=== PATIENT | female | born 1990 | race Caucasian/White ===

== ENCOUNTER 2020-11-07 20:15 | Emergency (ER) | payer MEDICAID, SELFPAY ==
[2020-11-07 20:16] VITALS: TEMP 37.2; BMI 19.0
[2020-11-07 20:18] VITALS: TEMP 37.3
[2020-11-07 20:21] VITALS: BP 104/48; PULSE 135; RESP 18; O2SAT 97
[2020-11-07] MEDS: Acetaminophen 325 MG Tablet 650 MG PO (21:37)
[2020-11-07] MEDS: 0.9% Normal Saline 1,000 ML 1000 ML IV (21:38)
--- NOTE | 2020-11-07 21:38 | EDS_ITS ---
HPI History of Present Illness Chief Complaint: Nausea/Vomiting/Diarrhea Informant: patient and parent Narrative Narrative: Patient is a 30-year-old previously healthy female who presents to the emergency department for nausea/vomiting, diarrhea and belly pain. Her symptoms were present for 2 hours prior to arrival in the ED. The mother who is at bedside states she could not get her up so she decided to call the ambulance. Patient is feeling much better at this time. She is only complaining of a mild headache. She is no longer nauseous. She denies any known sick contacts. They thought that she had a low-grade fever at home. They attempted to give her a dose of Tylenol but she threw this up. She is currently 10 weeks . This is her second . Previous was healthy without acute issue. She denies any vaginal bleeding or discharge. No urinary symptoms. Denies any chest pain, shortness of breath or cough. [facility] Medical History (Updated 11/07/20 @ 23:[address] Servando Lopez DO) Anxiety Depression Ectopic Schizo affective schizophrenia Home Medications NK 11/07/20 [History Last Taken Unknown] Allergy/AdvReac Type Severity Reaction Status Date / Time No Known Allergies Allergy Verified 11/07/20 20:16 Social History Smoking Status: Current every day smoker tobacco type: cigarettes ROS ROS ED Constitutional Constitutional ED: Reports fever(s); Denies chills Eyes Eyes: Denies change in vision ENT ENT ED: Denies epistaxis or rhinorrhea Cardiovascular Cardiovascular: Denies chest pain or palpitations Respiratory/Chest Respiratory/Chest: Denies cough, dyspnea or dyspnea on exertion Gastrointestinal Gastrointestinal: Reports abdominal pain, diarrhea, nausea and vomiting Genitourinary Genitourinary ED: Denies dysuria, hematuria or urinary frequency Musculoskeletal Musculoskeletal: Denies back pain or neck pain Integumentary Denies rash Neurologic Neurologic: Denies dizziness, headache(s) or weakness EXAM Physical Exam Const Vital Signs: 11/07/20 20:16 11/07/20 20:18 11/07/20 20:21 Temperature 99 F 99.2 F H Temperature Source Temporal Temporal Pulse Rate 135 H Respiratory Rate 18 Blood Pressure 104/48 L Blood Pressure Mean 66 Pulse Ox 97 Oxygen Delivery Method Room Air Positive well nourished and well developed General Appearance ED: well developed and NAD HEENT Reports normocephalic, head/scalp atraumatic and moist mucous membranes Eyes PERRL and EOMs intact bilaterally Neck supple Chest Wall inspection of chest normal Resp normal respiratory effort and clear to auscultation bilaterally Auscultation: Negative for rales, rhonchi or wheezes Cardio regular rate, regular rhythm and no murmurs GI normal to inspection, nondistended, normoactive bowel sounds and non-tender Palpation: soft; Negative for guarding or rebound tenderness present Back/Spine no CVA tenderness Extremity normal to inspection General Extremety ED: Negative for edema or tenderness General Extremity: Negative for edema Neuro oriented x3, CN's II-XII intact bilaterally and no sensory deficits noted Sensorium / Orientation: alert Motor Exam: strength 5/5 throughout Psych mental status grossly normal Skin no rashes or lesions noted MDM MDM MDM Narrative Medical decision making narrative: Patient presents to the emerge department for 2 hours worth of nausea/vomiting, diarrhea and abdominal pain. She is feeling better on arrival. She does have a mildly low blood pressure and is tachycardic. She started on IV fluids upon arrival. Basic lab work sent. Physical exam is benign and she is feeling much better at this time. She is given a dose of Tylenol as she threw up her previous dose and is having a headache. Patient's lab work shows a mild leukopenia with a white blood cell count of 1.0. Her potassium is mildly low at 2.9 this is replaced. Otherwise no significant lab abnormality. Patient has remained asymptomatic throughout ED stay. She does feel comfortable going home. Patient likely has a gastroenteritis with the vomiting and diarrhea but has already resolved. At this time she is discharged home in stable condition. Return precautions reviewed. She is to follow-up with her PCP. All questions were answered. Lab Data Labs: Laboratory Results - last 24 hr 11/07/20 20:15 Diff Path Review Reviewed Discharge Plan Triage Chief Complaint: Nausea/Vomiting/Diarrhea Other Complaint: Abd Pain ED Provider: Servando Lopez Dx/Rx/DC Orders Clinical Impression: Nausea & vomiting, Diarrhea Instructions: ED Diarrhea, Unknown Cause, ED Vomiting (Adult) Prescriptions: No Action NK RF: 0 Primary Care Provider: Care Physician,No Primary Referrals: Cem Platt DO [STAFF PHYSICIAN] - 2 Days Care Physician,No Primary [Primary Care Provider] - 2 Days Disposition Disposition: Home, Self Care Discharge Date/Time: 11/08/20 00:00
[2020-11-07 21:49] LABS: Absolute Lymphocyte Count 0.34 X10^3/uL (0.83-4.51); Absolute Neutrophil Count 3.6 X10^3/uL (2.0-7.7); Basophil# 0.01 X10^3/uL; Basophil% 0.3 % (0-1); Hematocrit 36.4 % (37-47); Lymphocyte # 0.34 X10^3/ul (0.83-4.51); Lymphocyte % 8.5 % (19-41); Mean Corpuscular Hgb 26.2 pg (27.0-32.0); Mean Corpuscular Volume 79.5 fL (81-99); Mean Platelet Vol. 9.7 fl (6.2-12.0); Monocyte# 0.02 X10^3/uL; Monocyte% 0.5 % (0-10); NRBC Flagged by Analyzer 0 % (0-5); Neutrophil # 3.62 X10^3/uL (2.7-7.7); Neutrophil % 90.4 % (47-70); POSITIVE DIFFERENTIAL YES; POSITIVE MORPHOLOGY YES; Platelet Count 310 K/mm3 (150-450); RBC Distribution Width CV 13.2 % (11.6-14.6); RBC Distribution Width SD 37.3 fl (35.1-43.9); Red Blood Count 4.58 M/mm3 (4.2-5.4)
[2020-11-07 21:57] LABS: ALB/GLOB Ratio 0.9 RATIO (0.9-2.4); AST(SGOT) 73 U/L (15-37); Alanine Aminotransfer ALT/SGPT 32 U/L (13-56); Albumin, Serum 3.1 g/dL (3.2-5.0); Alkaline Phosphatase 90 U/L (45-117); Anion Gap 10 (5-15); BUN 11 mg/dL (7-18); BUN/Creat Ratio 15.2 RATIO (10-20); Calcium,Total 8.7 mg/dL (8.5-10.1); Chloride 108 mmol/L (98-107); Creatinine, Serum 0.72 mg/dL (0.55-1.02); EST Glomerular Filtration Rate 101 mL/min (>60); Est Glom Filt Rate - Afr Amer 122 mL/min (>60); Estimated Creatinine Clearance 97.41 ml/min; Globulin 3.5 g/dL (2.2-4.2); Glucose 86 mg/dL (74-106); Potassium 2.9 mmol/L (3.5-5.1); Protein, Total 6.6 g/dL (6.4-8.2); Sodium Level 138 mmol/L (136-145)
[2020-11-07 21:59] LABS: Differential Indicated SCAN CRITERIA MET
[2020-11-07 22:03] LABS: Mucous, Urine 0 SEEN /hpf (<or=2+); Red Blood Cells-Urine 0 SEEN /hpf (0-5)
[2020-11-07 22:04] LABS: Color, Urine Yellow (Yellow); Glucose, Dipstick Normal (Normal); Ketone-Dipstick Negative (Negative); Leukocyte Esterase-Dipstick 100 /ul (Negative); Nitrite-Dipstick Negative (Negative); Occult Blood-Urine 10 /ul (Negative); Protein-Dipstick 100 mg/dl (Negative); Urine Bilirubin Dipstick Negative (Negative); Urine Clarity Clear (Clear); Urine Urobilinogen Normal (Normal)
[2020-11-07 22:09] LABS: Squamous Epithelial Cells - UA 0-5 SEEN /hpf (5-10); White Blood Cells 0-5 SEEN /hpf (0-5)
[2020-11-07 22:10] LABS: Bacteria 1+ /hpf (None Seen); Hyaline Cast 5-10 SEEN /lpf (0-5)
[2020-11-07 22:11] LABS: Yeast-Urine 1+ /hpf (None Seen)
[2020-11-07 22:17] VITALS: TEMP 37.1
[2020-11-07 22:29] LABS: Differential Comment SCANNED
[2020-11-07] MEDS: Potassium Chloride Oral Tablet 20 MEQ 40 MEQ PO (22:55)
[2020-11-08 12:55] LABS: Pathologist Review Reviewed
== END 2020-11-08 | disposition home or self-care (01) ==
PROVIDERS: Emergency Provider Emergency Medicine
DX: O21.9 Vomiting of pregnancy, unspecified (principal); O99.331 Smoking (tobacco) complicating pregnancy, first trimester; O26.891 Other specified pregnancy related conditions, first trimester; R19.7 Diarrhea, unspecified; F17.210 Nicotine dependence, cigarettes, uncomplicated; Z3A.10 10 weeks gestation of pregnancy
CPT/HCPCS: 80053; 81001; 85025; 99285; J7030; A4216

== ENCOUNTER 2021-01-18 17:45 | Emergency (ER) | payer MEDICAID, SELFPAY ==
[2021-01-18 17:46] VITALS: BP 113/75; PULSE 95; RESP 14; TEMP 36.7; O2SAT 100
[2021-01-18 19:12] VITALS: RESP 14
--- NOTE | 2021-01-18 19:37 | EDS_ITS ---
HPI HPI - Psych History of Present Illness Chief Complaint: Mental Health Informant: patient Onset/Context/Timing Onset: Weeks (2-3) Context: Gradual Onset Conflict: - (out of meds) Timing: Continuous Current Severity: Moderate Maximum Severity: Moderate Worsened by: - (nothing) Relieved by: nothing Associated Symptoms Associated Symptoms - Psych: Positive for Auditory Hallucinations; Negative for Suicidal Thoughts, Paranoia and Visual Hallucinations Narrative Narrative: Patient is currently in a long-term, hearing auditory hallucinations her main symptom of schizophrenia that was under good control when she was on her medications. However several weeks ago when she went to the long-term due to personal relationship issues, she lost her medication and she does not know what happened to it, and within 3 days she started gradually hearing the voices again, and have been getting worse. She denies any command hallucinations or suicidal/homicidal ideation. She has not been doing anything dangerous. She simply is asking for refill on her psychiatric medications because she made an appointment with her psychiatrist but it is taking a while to get in due to them being busy. Other than a cough for the past 3 days she denies any other acute symptoms. She was not vaccinated against Covid and states I do not want the vaccine. She states there is nobody at the long-term with Covid that she knows of nor she had any exposures that she knows of. No travel out of the area recently. [facility] Medical History Anxiety Depression Ectopic Schizo affective schizophrenia Home Medications hydroxyzine pamoate 50 mg PO TID PRN PRN #30 capsule 01/18/21 [Rx Last Taken Unknown] lurasidone [Latuda] 20 mg PO DAILY 01/18/21 [History Last Taken Unknown] lurasidone [Latuda] 20 mg PO DAILY #30 tab 01/18/21 [Rx Last Taken Unknown] sertraline 50 mg PO DAILY 01/18/21 [History Last Taken Unknown] sertraline 50 mg PO DAILY #30 tab 01/18/21 [Rx Last Taken Unknown] Allergy/AdvReac Type Severity Reaction Status Date / Time No Known Allergies Allergy Verified 01/18/21 17:58 Social History Smoking Status: Current every day smoker tobacco type: cigarettes ROS ROS ED Constitutional Constitutional ED: Denies chills or fever(s) Eyes Eyes: Denies change in vision or diplopia ENT ENT ED: Denies rhinorrhea or sore throat Cardiovascular Cardiovascular: Denies chest pain or palpitations Respiratory/Chest Respiratory/Chest: Reports cough; Denies dyspnea Gastrointestinal Gastrointestinal: Denies abdominal pain, diarrhea, nausea or vomiting Genitourinary Genitourinary ED: Denies dysuria or hematuria Musculoskeletal Musculoskeletal: Denies back pain or neck pain Integumentary Denies abscess or rash Neurologic Neurologic: Denies headache(s), paresthesias or weakness Psychiatric Psychiatric: Denies anxiety or suicidal thoughts EXAM Physical Exam Const Vital Signs: 01/18/21 17:46 01/18/21 19:12 Temperature 98.1 F Temperature Source Temporal Pulse Rate 95 Respiratory Rate 14 14 Blood Pressure 113/75 Blood Pressure Mean 87 Pulse Ox 100 Oxygen Delivery Method Room Air Positive well nourished and well developed General Appearance ED: well developed and NAD HEENT Reports moist mucous membranes normocephalic and atraumatic Eyes PERRL and EOMs intact bilaterally Neck full ROM and supple Resp normal respiratory effort and clear to auscultation bilaterally Cardio regular rate, regular rhythm and no murmurs GI non-tender and non-distended Auscultation: normoactive bowel sounds Palpation: soft Back/Spine no CVA tenderness General Back: other FROM Extremity normal to inspection General Extremety ED: Negative for edema, pulses abnormal or tenderness General Extremity: Negative for edema or pulses abnormal Neuro oriented x3, CN's II-XII intact bilaterally and no sensory deficits noted Sensorium / Orientation: awake and alert Motor Exam: strength 5/5 throughout Psych mental status grossly normal, thought process normal, cooperative, affect normal, speech normal, activity/motor behavior normal, denies homicidal ideation and denies suicidal ideation Psych Narrative: Not delusional, not acting out on any hallucinations or showing any evidence that they are present right now Skin no rashes or lesions noted and no wounds MDM MDM MDM Narrative Medical decision making narrative: Patient was amenable to a rapid Covid test given her symptoms, it is negative, she was discharged with a month supply of her sertraline and Latuda as well as prn hydroxyzine for her symptoms. She apparently was on Suboxone which I am not prescribing, nor Robaxin or other as needed medications. Discharge Plan Triage Chief Complaint: Mental Health ED Provider: Rafael Kolb Dx/Rx/DC Orders Clinical Impression: Auditory hallucinations, Schizophrenia, Medication refill, Acute cough Instructions: ED Schizophrenia, General Prescriptions: New sertraline 50 mg tablet 50 mg PO DAILY Qty: 30 RF: 0 Latuda 20 mg tablet 20 mg PO DAILY Qty: 30 RF: 0 hydroxyzine pamoate 25 mg capsule 50 mg PO TID PRN PRN (Reason: Anxiety) Qty: 30 RF: 0 No Action sertraline 50 mg tablet 50 mg PO DAILY RF: 0 Latuda 20 mg tablet 20 mg PO DAILY RF: 0 Primary Care Provider: Care Physician,No Primary Referrals: Counseling,Center [GROUP OF PHYSICIANS] - As soon as possible Care Physician,No Primary [Primary Care Provider] - Activity Restrictions/Additional Instructions: Your rapid Covid test was negative Disposition Disposition: Home, Self Care
== END 2021-01-18 19:54 | disposition home or self-care (01) ==
PROVIDERS: Emergency Provider Emergency Medicine
DX: F20.9 Schizophrenia, unspecified (principal); R05.1 Acute cough; F17.210 Nicotine dependence, cigarettes, uncomplicated; F32.9 Major depressive disorder, single episode, unspecified; F41.9 Anxiety disorder, unspecified; Z79.899 Other long term (current) drug therapy; Z76.0 Encounter for issue of repeat prescription
CPT/HCPCS: 87426; 99282